=== PATIENT | male | born 1985 | race Hispanic/Latino ===

== ENCOUNTER 2022-06-27 05:40 | Day surgery (SDC) | payer OTHER ==
[2022-06-25 10:09] VITALS: BP 132/67
[2022-06-25 10:16] LABS: BASOPHILS % (AUTO) 0.5 % (0.0-5.0); EOSINOPHILS % (AUTO) 1.5 % (0.0-8.0); LYMPHOCYTES % (AUTO) 33.3 % (21.0-51.0); MEAN CORPUSCULAR HEMOGLOBIN 30.4 pg (27.0-33.0); MEAN CORPUSCULAR HGB CONC 32.6 g/dL (32.0-36.0); MEAN CORPUSCULAR VOLUME 93.5 fL (79-99); MONOCYTES % (AUTO) 7.3 % (3.0-13.0); NEUTROPHILS % (AUTO) 57.2 % (40.0-77.0); PLATELET COUNT (AUTO) 263 K/uL (130-400); RED CELL DISTRIBUTION WIDTH 13.8 % (11.0-15.5); WHITE BLOOD COUNT (AUTO) 5.9 K/uL (4.8-10.8)
[2022-06-25 10:23] LABS: ALBUMIN 4.2 g/dL (3.5-5.0); CARBON DIOXIDE 31 mmol/L (21-32); CHLORIDE 102 mmol/L (101-111); CREATININE 1.1 mg/dL (0.5-1.5); CRP QUANTITATIVE < 2.00 mg/L (0.00-9.0); GLOMERULAR FILTR. RATE CALC 90 mL/min (>90); GLUCOSE,RANDOM 149 mg/dL (70-105); POTASSIUM 3.7 mmol/L (3.5-5.1); SODIUM SERUM 141 mmol/L (136-145); UREA NITROGEN, BLOOD 16 mg/dL (7-18)
[2022-06-27] VITALS (16 sets, daily range): BP systolic 117–152; BP diastolic 51–79
[~2022-06-27] VITALS: Ht 170.2 cm; Wt 85.2 kg
[2022-06-27] MEDS: CEFAZOLIN SODIUM 1 GM VIAL IVPB SCH ×2 (06:00→07:30)
[2022-06-27] MEDS ORDERED: BUPIVACAINE/PF 0.25% 10ML VIAL IJ ONE ×2 (06:49→07:49)
[2022-06-27] MEDS ORDERED: LIDOCAINE PF 100MG/5ML (2%) SYRINGE 5ML ONE (06:55)
[2022-06-27] MEDS ORDERED: PROPOFOL 10 MG/ML 20ML VIAL IV ONE (06:56)
[2022-06-27] MEDS ORDERED: FENTANYL CITRATE PF 50 MCG/1 ML 2ML VIAL ONE (06:57)
[2022-06-27] MEDS ORDERED: MIDAZOLAM HCL 1 MG/ML 2ML VIAL ONE (06:57)
[2022-06-27] MEDS ORDERED: KETOROLAC 30MG VIAL (30MG/ML) ONE (07:25)
[2022-06-27] MEDS ORDERED: DEXAMETHASONE SOD PHOSPHATE 10MG/ML 1ML VIAL ONE (07:26)
[2022-06-27] MEDS ORDERED: ONDANSETRON 4MG INJ ONE (07:51)
[2022-06-27] MEDS ORDERED: ACET-2079 PO (09:36)
== END 2022-06-27 11:05 | disposition home or self-care (01) ==
LOC: DAH 05:40
PROVIDERS: ATTEND Student in an Organized Health Care Education/Training Program
DX: G56.03 Carpal tunnel syndrome, bilateral upper limbs (principal); Z20.822 Contact with and (suspected) exposure to COVID-19; G56.21 Lesion of ulnar nerve, right upper limb; M77.11 Lateral epicondylitis, right elbow; M77.01 Medial epicondylitis, right elbow; M77.12 Lateral epicondylitis, left elbow; Z72.89 Other problems related to lifestyle; Z87.891 Personal history of nicotine dependence; Z79.899 Other long term (current) drug therapy; Z98.890 Other specified postprocedural states
CPT/HCPCS: 82040; 80048; 85025; 84134; 86140; 87426; 36415; 64718; 64721; A4663; A6207; J7120; J3010; J0690; J1100; J2001; J2250; J2704; J2405; J1885; J3490 ×2; A6223; G0168; A4649 ×2; A5120; A4215; A4223; A4222; A4221

== ENCOUNTER 2022-12-05 05:54 | Day surgery (SDC) | payer OTHER ==
[2022-12-03 11:23] LABS: BASOPHILS # (AUTO) 0.03 K/uL (0.00-0.20); BASOPHILS % (AUTO) 0.3 % (0.0-5.0); EOSINOPHILS % (AUTO) 2.3 % (0.0-8.0); HEMATOCRIT 40.3 % (42-54); IMMATURE GRANULOCYTE ABSOLUTE 0.03 K/uL (0-1); LYMPHOCYTES % (AUTO) 23.5 % (21.0-51.0); MEAN CORPUSCULAR HEMOGLOBIN 30.8 pg (27.0-33.0); MEAN CORPUSCULAR HGB CONC 33.3 g/dL (32.0-36.0); MEAN CORPUSCULAR VOLUME 92.6 fL (79-99); MONOCYTES # (AUTO) 0.9 K/uL (0.1-1.0); MONOCYTES % (AUTO) 10.8 % (3.0-13.0); NEUTROPHILS # (AUTO) 5.4 K/uL (1.8-7.7); NEUTROPHILS % (AUTO) 62.8 % (40.0-77.0); PLATELET COUNT (AUTO) 267 K/uL (130-400); RED BLOOD CELL COUNT(AUTO) 4.35 MIL/uL (4.50-6.20); RED CELL DISTRIBUTION WIDTH 13.6 % (11.0-15.5); WHITE BLOOD COUNT (AUTO) 8.7 K/uL (4.8-10.8)
[2022-12-03 11:32] VITALS: BP 157/87; PULSE 88; RESP 16
[2022-12-03 11:34] LABS: INR < 0.93 (0.85-1.15)
[2022-12-03 11:35] LABS: ALBUMIN 3.7 g/dL (3.5-5.0); CREATININE 0.9 mg/dL (0.5-1.5); CRP QUANTITATIVE 9.6 mg/L (0.00-9.0); PARTIAL THROMBOPLASTIN TIME 29.8 SEC (26.3-35.5); POTASSIUM 3.6 mmol/L (3.5-5.1)
[2022-12-05] VITALS (18 sets, daily range): BP systolic 108–136; BP diastolic 63–75; PULSE 74–101; RESP 13–20
[~2022-12-05] VITALS: Ht 170.2 cm; Wt 90.8 kg
[~2022-12-05 05:54] MED LIST: IBUP-14 PO
[2022-12-05] MEDS ORDERED: CEFAZOLIN SODIUM 2 GM VIAL ONE (06:14)
[2022-12-05] MEDS ORDERED: LACTATED RINGERS 1000ML 1,000 ML IV ONE (06:15)
[2022-12-05] MEDS ORDERED: DEXAMETHASONE SOD PHOSPHATE 10MG/ML 1ML VIAL ONE (06:42)
[2022-12-05] MEDS ORDERED: LIDOCAINE PF 100MG/5ML (2%) SYRINGE 5ML ONE (06:42)
[2022-12-05] MEDS ORDERED: PROPOFOL 10 MG/ML 20ML VIAL IV ONE (06:43)
[2022-12-05] MEDS ORDERED: FENTANYL CITRATE PF 50 MCG/1 ML 2ML VIAL ONE (06:43)
[2022-12-05] MEDS ORDERED: MIDAZOLAM HCL 1 MG/ML 2ML VIAL ONE (06:43)
[2022-12-05] MEDS ORDERED: ONDANSETRON 4MG INJ ONE (06:43)
[2022-12-05] MEDS ORDERED: GLYCOPYRROLATE 1 MG/5 ML SYRINGE ONE (06:47)
[2022-12-05] MEDS ORDERED: KETAMINE 50MG/ML SYRINGE 50 MG/ML DISP.SYRIN ONE (06:50)
[2022-12-05] MEDS ORDERED: BUPIVACAINE/PF 0.25% 30ML VIAL IJ ONE (07:33)
[2022-12-05] MEDS ORDERED: PHENYLEPHRINE HCL 10 MG/ML 1ML VIAL IV ONE (08:43)
[2022-12-05] MEDS ORDERED: ACET-2079 PO (09:11)
[2022-12-05] MEDS ORDERED: MEPERIDINE-PF 25 MG/ML SYG ONE (09:41)
== END 2022-12-05 10:57 | disposition home or self-care (01) ==
LOC: DAH 05:54
PROVIDERS: ATTEND Student in an Organized Health Care Education/Training Program
DX: G56.02 Carpal tunnel syndrome, left upper limb (principal); G56.22 Lesion of ulnar nerve, left upper limb; M79.642 Pain in left hand; F17.210 Nicotine dependence, cigarettes, uncomplicated; Z98.890 Other specified postprocedural states; Z79.899 Other long term (current) drug therapy; Z72.89 Other problems related to lifestyle; Z79.1 Long term (current) use of non-steroidal anti-inflammatories (NSAID)
CPT/HCPCS: 82040; 80048; 85025; 85610; 85730; 84134; 86140; 36415; 64721; 64718; A4565; A4649 ×2; J7120; J3010; J3490 ×3; J1100; J2001; J2250; J2704; J2405; J2175; J2371; J0690; A6223; A5120; A4215; A4223; A4222; A4221; A4663